=== PATIENT | female | born 1975 | race Caucasian/White ===

== ENCOUNTER 2021-09-02 11:08 | Outpatient (CLI) | payer OTHER ==
[~2021-09-02 11:08] MED LIST: ACETAMINOOPHEN-1 TAB PO; CATAFLAM50 MG PO; CIPRO250 MG PO; URETRON D-S TAB1 TAB PO
== END 2021-09-02 11:21 | disposition home or self-care (01) ==
LOC: RAD 11:08
PROVIDERS: ATTEND Orthopaedic Surgery
DX: M25.572 Pain in left ankle and joints of left foot (principal)

== ENCOUNTER 2022-02-24 16:50 | Outpatient (CLI) | payer OTHER | END 2022-02-24 17:05 | disposition home or self-care (01) | LOC: LAB 16:50 | PROVIDERS: ATTEND Orthopaedic Surgery | DX: E78.5 Hyperlipidemia, unspecified (principal); I10 Essential (primary) hypertension ==